=== PATIENT | male | born 1960 | race American Indian/Alaskan Native ===

== ENCOUNTER 2019-11-02 07:55 | Day surgery (SDC) | payer OTHER ==
[~2019-11-02] VITALS: Ht 170.2 cm; Wt 86.2 kg
--- NOTE | ~2019-11-02 | OR ---
[facility] [address], [place] [address] Draft DATE OF OPERATION: 11/02/2019 SURGEON: Leonidas Payton MD PREOPERATIVE DIAGNOSES: 1. Perforation of the left tympanic membrane. 2. Conductive hearing loss. 3. Recurring acute otitis media. POSTOPERATIVE DIAGNOSES: 1. Perforation of the left tympanic membrane. 2. Conductive hearing loss. 3. Recurring acute otitis media. PROCEDURE: Tympanoplasty without ossicular reconstruction of the left ear. INDICATIONS: This 59-year-old male may have had ear troubles as a child, but did not have frequent ear infections or draining ear or hole in until the last couple of years. This ear has had a number of infections on inspection in the office with the otologic microscope in between bouts, which demonstrate a well-healed a central perforation with pretty normal looking mucosa through the perforation. No sign of cholesteatoma. The above procedure was indicated to stop the infections and help his hearing, which showed about air-bone gap. DESCRIPTION OF PROCEDURE: The patient was placed in supine position and had induction of general anesthesia and LMA was used during this procedure. The left ear had a little bit of around it, prepped and draped and then using the microscope, a 4-quadrant block at the meatus was done as well as postauricular block approximately 6 mL of 1% lidocaine with 1:100,000 epinephrine were used. Using Lempert speculum looking down in the ear canal, the skin was then elevated as much as possible at the junction between cartilaginous and bony canal elevating lidocaine. An incision was then made, it resembled an H with the vertical limbs going down approximately 7 o'clock and 11 o'clock at anatomic position. Back elevating then the incision, which was on the posterior aspect of the ear canal, a piece of cotton was placed in there and then an incision was made using the needle point cautery posteriorly after injecting another 2 or 3 mL of 0.5% Marcaine with 1:200,000 epinephrine to help with postop pain. This dissection was carried down to the mastoid and also superiorly to the temporalis fascia. With Poli PATIENT NAME: ABELARDO SHERIDAN JR OPERATIVE REPORT DATE OF : 60 REPORT #: [id number] PHYSICIAN: LEONIDAS PAYTON MD PCP: RACHNA LEMOS REPORT IS CONFIDENTIAL AND NOT TO BE RELEASED WITHOUT AUTHORIZATION [facility] [address], [place] [address] Draft periosteal elevator, the dissection was carried down into the canal until the cotton could be seen, then a Westfall drain was inserted in the ear, pulled out through the incision with the ear brought forward and clamped into place with a hemostat. All of the dissection then proceeded through the postauricular incision. The incision, which was actually in the anteroinferior quadrant of the tympanic membrane was rimmed with Mazariegos needle. A cupped forceps used to remove that, then a backscratcher or a JAMSHID knife used to rough up the medial surface. A piece of temporalis fascia was harvested to see the thicker part of the 2 fascias, which are encountered. It was allowed to air-dry and then cut to trim and when elevating the tympanomeatal flap posteriorly, the middle ear space was entered approximately 1 or 2 o'clock. The chorda tympani nerve was encountered using higher magnification and was teased off with a hook from the undersurface of the tympanic membrane and carefully left intact. The ossicular reflex was intact. Things felt pretty normal in their consistency and movement, then the temporalis fascia was threaded through this tympanomeatal flap, brought out through the perforation and then a gelatin surgical absorbable foam was placed into the middle ear, Ciprodex placed into that to help it expand and then the graft was packed into place with medial graft approach in the usual fashion. was placed posteriorly. The tympanomeatal flap returned to its original position. Single piece of silastic placed over the perforation, which was now covered flush with graft medially and more foam and more Ciprodex. The ear was returned to its anatomic position and sewn into place with three sutures of subcutaneous 5-0 PDS and a running interlocking 5-0 fast absorbing gut was then used to close it. Flaps were reassessed and placed, so that they would heal next to each other and more foam and more Ciprodex and mastoid dressing was applied. The patient was awakened and sent to recovery room in good condition. No complications. Estimated blood loss is only a couple of milliliters. The patient did well. MD LEE Bella/EDITH /[id number] Copies: PATIENT NAME: ABELARDO SHERIDAN JR OPERATIVE REPORT DATE OF : 60 REPORT #: [id number] PHYSICIAN: LEONIDAS PAYTON MD PCP: RACHNA LEMOS REPORT IS CONFIDENTIAL AND NOT TO BE RELEASED WITHOUT AUTHORIZATION [address] [address] Draft ~ PATIENT NAME: ABELARDO SHERIDAN JR OPERATIVE REPORT DATE OF : 60 REPORT #: [id number] PHYSICIAN: LEONIDAS PAYTON MD PCP: RACHNA LEMOS REPORT IS CONFIDENTIAL AND NOT TO BE RELEASED WITHOUT AUTHORIZATION
[~2019-11-02 07:55] MED LIST: ACETAMINOPHEN325 M1 PO; AMOXICILLIN500 MG PO; ASPIRIN EC81 MG PO; CRESTOR10 MG PO; METFORMIN HCL500 MG PO; NORCO 5-325 TA1 EACH PO; VITAMIN D35000 UNIT PO
--- NOTE | 2019-11-02 12:00 | NUR ---
11/02/19 1200 Sheets,Katarzyna 1156 PT ARRIVED TO PACU ON 6L VIA MASK, PT WAKES EASILY TO TACTIEL STIMULI AND DNEIES PAIN THEN FALLS BACK TO SLEEP. RESP EVEN AND UNLABORED. DRESSING CDI
--- NOTE | 2019-11-02 12:29 | NUR ---
PT ARRIVES TO DS FROM PACU AWAKE AND ALERT, RESP EVEN AND UNLABORED. PT RATES PAIN IN L EAR 3/10 "STARTING TO WAKE UP." PT DENIES NAUSEA AND REQUESTS COFFEE. SCD'S IN PLACE. DC CRITERIA EXPLAINED TO PT. CALL LIGHT WITHIN REACH. PT PROVIDED COFFEE WITH SUGAR.
[2019-11-02] MEDS ORDERED: ACETAMINOPHEN-1 EAC1 PO (12:52)
--- NOTE | 2019-11-02 13:53 | NUR ---
1430: VS CHECKED. C/O PAIN 3/10 IN LEFT EAR. DECLINES PAIN MEDICATION AT THIS TIME. ASSISTED PATIENT OOB AND TO BATHROOM. VOID WITHOUT DIFFICULTY. GAIT STEADY TO AND FROM BATHROOM. CALLED PLACED TO DR. DELGADILLO TO CLARIFY WHEN PATIENT CAN REMOVE HIS LEFT EAR DRESSING. VOICEMAIL LEFT FOR DR. DELGADILLO TO CALL BACK. 1435: PATIENT DRESSED INDEPENDENTLY. AWAITING CALL BACK FROM DR. DELGADILLO.
--- NOTE | 2019-11-02 15:52 | NUR ---
1435: DR. DELGADILLO RETURNED PHONE CALL. DISCHARGE INSTRUCTIONS GIVEN TO PATIENT. VS CHECKED. IV DC'D WNL. TIP INTACT. DRESSING APPLIED. 1440: PATIENT DISCHARGED TO HOME WITH MOTHER VIA WHEELCHAIR.
== END 2019-11-02 14:35 | disposition home or self-care (01) ==
LOC: OPS 07:55 → DS 07:55 → OPS 09:00 → DS 09:00 → OPS 14:35
PROVIDERS: Otolaryngology
PROC: 09Q60ZZ Repair Left Middle Ear, Open Approach (ICD-10-PCS; principal; 2019-11-02 09:00)
DX: H72.92 Unspecified perforation of tympanic membrane, left ear (principal); H66.92 Otitis media, unspecified, left ear; H91.92 Unspecified hearing loss, left ear; H92.12 Otorrhea, left ear
CPT/HCPCS: 00120; J1100; J2370; J2405; J2704; J3010; J7121

== ENCOUNTER 2025-06-23 21:11 | Emergency (ER) | payer OTHER ==
[~2025-06-23] VITALS: Ht 170.2 cm; Wt 80.0 kg
[~2025-06-23 21:11] MED LIST changes: +ACETAMINOPHEN-1 EAC1 PO
[2025-06-23 21:30] LABS: BASOPHILS 1.0 % (0.2-1.2); EOSINOPHILS 4.6 % (0.8-7.0); LYMPHOCYTES 27.0 % (21.8-53.1); MCH 28.9 PG (25.7-32.2); MCHC 33.9 g/dL (32.3-36.5); MCV 85.3 fL (79.0-92.2); MONOCYTES 7.6 % (5.3-12.2); NEUTROPHILS 59.3 % (34.0-67.9); RBC 4.56 M/uL (4.63-6.08)
[2025-06-23] MEDS ORDERED: NITROGLYCERIN PACKET TOP ONE (21:30)
[2025-06-23 21:41] LABS: INR 0.99 (0.80-1.30); PROTIME 12.7 Sec (11.2-14.2)
[2025-06-23 21:54] LABS: ALT (SGPT) 16.0 U/L (14-59); AST (SGOT) 18.0 U/L (15-37); GLOMERULAR FILTRATION RATE,EST 106.0 mL/min (>60); PROTEIN, TOTAL 7.2 g/dL (6.4-8.2); UREA NITROGEN 7.0 mg/dL (7-18)
[2025-06-23] MEDS ORDERED: CYCLOBENZAPRINE10 MG PO (23:02)
[2025-06-23 23:15] VITALS: BP 130/73
[2025-06-23] MEDS ORDERED: CYCLOBENZAPRINE HCL 10 MG HOME.PACK PO ONE (23:15)
--- NOTE | 2025-06-24 13:28 | EKG ---
[facility] [address] [facility] [place] [address] Signed Normal sinus rhythm Normal ECG No previous ECGs available Confirmed by Terry Chacon MD () on 06/24/2025 1:28:45 PM Electronically Signed By: TERRY CHACON MD 06/24/25 1328 PATIENT NAME: ABELARDO SHERIDAN Electrocardiogram DATE OF : 60 PHYSICIAN: TERRY CHACON MD REPORT #: [id number] REPORT IS CONFIDENTIAL AND NOT TO BE RELEASED WITHOUT AUTHORIZATION
== END 2025-06-23 23:16 | disposition home or self-care (01) ==
LOC: ED 21:11
PROVIDERS: Family Medicine
DX: R07.89 Other chest pain (principal); Z88.6 Allergy status to analgesic agent; Z87.891 Personal history of nicotine dependence
CPT/HCPCS: 36415; 71045; 80053; 83735; 83880; 84484; 85025; 85379; 85610; 93005; 93010; 99285-25